=== PATIENT | male | born 1970 | race Caucasian/White ===

== ENCOUNTER 2022-09-28 09:17 | Inpatient (IN) | payer OTHER ==
[2022-09-28 09:46] VITALS: BMI 25.9
[2022-09-28] MEDS ORDERED: hydrOXYzine PAMOATE 25 MG CAPSULE (FP) PO PRN (10:21)
[2022-09-28] MEDS ORDERED: ACETAMINOPHEN 325 MG TABLET (FP) PO PRN ×2 (10:21)
[2022-09-28] MEDS ORDERED: NALOXONE HCL (KLOXXADO) 8 MG SPRAY NS PRN (10:21)
[2022-09-28] MEDS ORDERED: NICOTINE 10 MG CARTRIDGE (INHALER) IH PRN (10:21)
[2022-09-28] MEDS ORDERED: DICYCLOMINE HCL 10 MG CAPSULE PO PRN (10:21)
[2022-09-28] MEDS ORDERED: ONDANSETRON *ODT* 4 MG TABLET SL PRN (10:21)
[2022-09-28] MEDS ORDERED: IBUPROFEN 600 MG TABLET (FP) PO PRN (10:21)
[2022-09-28] MEDS ORDERED: POLYETHYLENE GLYCOL (HEALTHYLAX) 3350 17 GM PACKET PO PRN (10:21)
[2022-09-28] MEDS ORDERED: LOPERAMIDE HCL 2 MG CAPSULE PO PRN (10:21)
[2022-09-28] MEDS ORDERED: BENZOCAINE/MENTHOL (CHLORASEPTIC ) LOZENGE MM PRN (10:21)
[2022-09-28] MEDS ORDERED: MAGNESIUM HYDROX 2400MG/30ML ORAL SUSPENSION 30 ML CUP PO PRN (10:21)
[2022-09-28] MEDS ORDERED: BISMUTH SUBSALICYLATE 524 MG/30 ML PO PRN (10:21)
[2022-09-28] MEDS ORDERED: IBUPROFEN 400 MG TABLET (FP) PO PRN (10:21)
[2022-09-28] MEDS ORDERED: MAG HYDROX/AL HYDROX/SIMETH 30 ML UNIT-DOSE CUP PO PRN (10:21)
[2022-09-28] MEDS: PRENATAL VITAMINS W/ FOLIC ACID TABLET (FP) PO SCH (11:32)
[2022-09-28] MEDS: NICOTINE 14 MG/24 HOURS TOPICAL PATCH TD SCH (11:33)
[2022-09-28] MEDS: METHOCARBAMOL 500 MG TABLET PO PRN (22:39)
[2022-09-28] MEDS: traZODone HCL 50 MG TABLET (FP) PO SCH (22:40)
[2022-09-28] MEDS: MELATONIN 5 MG TABLETS PO SCH (22:41)
[2022-09-28] MEDS: THIAMINE HCL 100 MG TABLET (FP) PO SCH (22:41)
[2022-09-29 09:07] VITALS: RESP 18
[2022-09-29] MEDS ORDERED: ESCITALOPRAM OXALATE 10 MG TABLET PO SCH (10:00)
[2022-09-29] MEDS: PRENATAL VITAMINS W/ FOLIC ACID TABLET (FP) PO SCH (10:20)
[2022-09-29] MEDS: NICOTINE 14 MG/24 HOURS TOPICAL PATCH TD SCH (10:21)
[2022-09-29] MEDS: METHOCARBAMOL 500 MG TABLET PO PRN ×2 (10:23→18:25)
[2022-09-29 12:51] LABS: HEMATOCRIT 41.7 % (35.4-49); MCH 30.7 pg (25.7-33.7); MCHC 33.7 g/dl (32.0-35.9); MEAN CELL VOLUME 91.3 fl (80-96); MEAN PLT VOLUME 8.4 fl (7.5-11.1); PLATELET COUNT 323 10^3/uL (134-434); RBC 4.56 M/mm3 (4.00-5.60); RDW 13.4 % (11.9-15.9); WHITE BLOOD COUNT 9.8 K/mm3 (4.0-10.0)
[2022-09-29 14:07] LABS: ALBUMIN 3.7 g/dl (3.4-5.0); CALCIUM 9.3 mg/dL (8.5-10.1)
[2022-09-29 14:08] LABS: BLOOD UREA NITROGEN 16.4 mg/dL (7-18)
[2022-09-29 14:11] LABS: CREATININE 0.9 mg/dL (0.55-1.3)
[2022-09-29 14:12] LABS: BILIRUBIN,TOTAL 0.4 mg/dL (0.2-1); TOT PROT 6.6 g/dl (6.4-8.2)
[2022-09-29] MEDS: MELATONIN 5 MG TABLETS PO SCH (22:13)
[2022-09-29] MEDS: THIAMINE HCL 100 MG TABLET (FP) PO SCH (22:13)
[2022-09-29] MEDS: traZODone HCL 50 MG TABLET (FP) PO SCH (22:13)
[2022-09-30 09:11] VITALS: BP 145/81; PULSE 95; TEMP 97.3
== END 2022-09-30 09:16 | disposition home or self-care (01) | DRG 775 ==
LOC: YASAS 09:17 → Y3N 10:44
PROVIDERS: ADMIT Allergy & Immunology; ATTEND Surgery
PROC: HZ2ZZZZ Detoxification Services for Substance Abuse Treatment (ICD-10-PCS; principal; 2022-09-28)
DX: F10.230 Alcohol dependence with withdrawal, uncomplicated (principal); F17.210 Nicotine dependence, cigarettes, uncomplicated; F41.9 Anxiety disorder, unspecified; F32.A Depression, unspecified; G47.00 Insomnia, unspecified; Z88.8 Allergy status to other drugs, medicaments and biological substances
CPT/HCPCS: 36415; 80053; 85027; 86780; C9803-CS; U0003; U0005

== ENCOUNTER 2023-02-07 11:30 | Inpatient (IN) | payer OTHER ==
[2023-02-07 11:45] VITALS: BMI 29.0
[2023-02-07] MEDS ORDERED: BENZONATATE 200 MG CAPSULE PO PRN (12:23)
[2023-02-07] MEDS ORDERED: LOPERAMIDE HCL 2 MG CAPSULE PO PRN (12:23)
[2023-02-07] MEDS ORDERED: NALOXONE HCL 0.4 MG/ML VIAL IM PRN (12:23)
[2023-02-07] MEDS ORDERED: MAGNESIUM HYDROX 2400MG/30ML ORAL SUSPENSION 30 ML CUP PO PRN (12:23)
[2023-02-07] MEDS ORDERED: guaiFENesin 600 MG TABLET.ER (FP) PO PRN (12:23)
[2023-02-07] MEDS ORDERED: ONDANSETRON *ODT* 4 MG TABLET SL PRN (12:23)
[2023-02-07] MEDS ORDERED: AMMONIUM LACTATE 12% LOTION 225 GM BOTTLE TP PRN (12:23)
[2023-02-07] MEDS ORDERED: MAG HYDROX/AL HYDROX/SIMETH 30 ML UNIT-DOSE CUP PO PRN (12:23)
[2023-02-07] MEDS ORDERED: hydrOXYzine PAMOATE 25 MG CAPSULE (FP) PO PRN (12:23)
[2023-02-07] MEDS ORDERED: IBUPROFEN 400 MG TABLET (FP) PO PRN (12:23)
[2023-02-07] MEDS ORDERED: NICOTINE POLACRILEX 2 MG GUM BUC PRN (12:23)
[2023-02-07] MEDS ORDERED: DICYCLOMINE HCL 10 MG CAPSULE PO PRN (12:23)
[2023-02-07] MEDS ORDERED: BENZOCAINE/MENTHOL (CHLORASEPTIC ) LOZENGE MM PRN (12:23)
[2023-02-07] MEDS ORDERED: IBUPROFEN 600 MG TABLET (FP) PO PRN (12:23)
[2023-02-07] MEDS ORDERED: NALOXONE HCL (KLOXXADO) 8 MG SPRAY NS PRN (12:23)
[2023-02-07] MEDS ORDERED: POLYETHYLENE GLYCOL (HEALTHYLAX) 3350 17 GM PACKET PO PRN (12:23)
[2023-02-07] MEDS ORDERED: NICOTINE 10 MG CARTRIDGE (INHALER) IH PRN (12:23)
[2023-02-07] MEDS ORDERED: ACETAMINOPHEN 325 MG TABLET (FP) PO PRN (12:23)
[2023-02-07] MEDS ORDERED: COLLOIDAL OATMEAL 1 BAR EACH TP PRN (12:23)
[2023-02-07] MEDS ORDERED: BISMUTH SUBSALICYLATE 262 MG/15 ML BTL PO PRN (12:23)
[2023-02-07 18:36] LABS: POTASSIUM 3.5 mmol/L (3.5-5.1)
[2023-02-07 18:40] LABS: CALCIUM 10.3 mg/dL (8.5-10.1); HEMATOCRIT 44.4 % (35.4-49); HEMOGLOBIN 14.9 GM/dL (11.7-16.9); MCH 30.4 pg (25.7-33.7); MCHC 33.7 g/dl (32.0-35.9); MEAN CELL VOLUME 90.3 fl (80-96); MEAN PLT VOLUME 8.4 fl (7.5-11.1); PLATELET COUNT 368 10^3/uL (134-434); RBC 4.91 M/mm3 (4.00-5.60); RDW 13.4 % (11.9-15.9); WHITE BLOOD COUNT 10.5 K/mm3 (4.0-10.0)
[2023-02-07 18:41] LABS: ALBUMIN 4.1 g/dl (3.4-5.0); BLOOD UREA NITROGEN 13.9 mg/dL (7-18)
[2023-02-07 18:43] LABS: CREATININE 0.9 mg/dL (0.55-1.3)
[2023-02-07 18:45] LABS: BILIRUBIN,TOTAL 0.8 mg/dL (0.2-1)
[2023-02-07 18:46] LABS: TOT PROT 7.6 g/dl (6.4-8.2)
[2023-02-07] MEDS: THIAMINE HCL 100 MG TABLET (FP) PO SCH (22:16)
[2023-02-07] MEDS: traZODone HCL 50 MG TABLET (FP) PO SCH (22:16)
[2023-02-07] MEDS: METHOCARBAMOL 500 MG TABLET PO PRN (22:16)
[2023-02-07] MEDS: MELATONIN 5 MG TABLETS PO SCH (22:16)
[2023-02-08] MEDS: LACTULOSE 20 GM/30 ML UDC (FOR ORAL USE ONLY) PO SCH ×3 (09:58→22:16)
[2023-02-08] MEDS: PRENATAL VITAMINS W/ FOLIC ACID TABLET (FP) PO SCH (09:58)
[2023-02-08] MEDS: ESCITALOPRAM OXALATE 10 MG TABLET PO SCH (09:58)
[2023-02-08] MEDS ORDERED: diazePAM 5 MG TABLET PO PRN (10:03)
[2023-02-08] MEDS: diazePAM 5 MG TABLET PO SCH ×3 (10:33→22:18)
[2023-02-08] MEDS: METHOCARBAMOL 500 MG TABLET PO PRN (22:17)
[2023-02-08] MEDS: MELATONIN 5 MG TABLETS PO SCH (22:17)
[2023-02-08] MEDS: THIAMINE HCL 100 MG TABLET (FP) PO SCH (22:17)
[2023-02-08] MEDS: traZODone HCL 50 MG TABLET (FP) PO SCH (22:18)
[2023-02-08] MEDS: OFLOXACIN 0.3% OTIC SOLUTION 5 ML BOTTLE AU SCH (22:58)
[2023-02-08] MEDS: CARBAMIDE PEROXIDE 6.5% OTIC 15 ML BOTTLE AU SCH (23:05)
[2023-02-09] MEDS: diazePAM 5 MG TABLET PO SCH ×4 (05:56→22:13)
[2023-02-09] MEDS: LACTULOSE 20 GM/30 ML UDC (FOR ORAL USE ONLY) PO SCH ×3 (05:57→22:14)
[2023-02-09] MEDS: ESCITALOPRAM OXALATE 10 MG TABLET PO SCH (10:15)
[2023-02-09] MEDS: PRENATAL VITAMINS W/ FOLIC ACID TABLET (FP) PO SCH (10:15)
[2023-02-09] MEDS: CARBAMIDE PEROXIDE 6.5% OTIC 15 ML BOTTLE AU SCH ×2 (10:16→21:32)
[2023-02-09] MEDS: OFLOXACIN 0.3% OTIC SOLUTION 5 ML BOTTLE AU SCH (10:16)
[2023-02-09] MEDS: THIAMINE HCL 100 MG TABLET (FP) PO SCH (22:13)
[2023-02-09] MEDS: traZODone HCL 50 MG TABLET (FP) PO SCH (22:14)
[2023-02-09] MEDS: MELATONIN 5 MG TABLETS PO SCH (22:14)
[2023-02-10] MEDS: diazePAM 5 MG TABLET PO SCH ×2 (05:27→14:32)
[2023-02-10] MEDS: LACTULOSE 20 GM/30 ML UDC (FOR ORAL USE ONLY) PO SCH (05:28)
[2023-02-10] MEDS: PRENATAL VITAMINS W/ FOLIC ACID TABLET (FP) PO SCH (10:09)
[2023-02-10] MEDS: ESCITALOPRAM OXALATE 10 MG TABLET PO SCH (10:09)
[2023-02-10] MEDS: OFLOXACIN 0.3% OTIC SOLUTION 5 ML BOTTLE AU SCH (10:10)
[2023-02-10] MEDS: CARBAMIDE PEROXIDE 6.5% OTIC 15 ML BOTTLE AU SCH (10:10)
[2023-02-10 11:49] LABS: EOS % 7.7 % (0-4.5); HEMATOCRIT 40.9 % (35.4-49); HEMOGLOBIN 13.8 GM/dL (11.7-16.9); MCH 30.8 pg (25.7-33.7); MCHC 33.6 g/dl (32.0-35.9); MEAN CELL VOLUME 91.7 fl (80-96); MEAN PLT VOLUME 8.6 fl (7.5-11.1); MONO % 10.4 % (3.8-10.2); NEUT % 53.9 % (42.8-82.8); PLATELET COUNT 297 10^3/uL (134-434); RBC 4.46 M/mm3 (4.00-5.60); RDW 13.2 % (11.9-15.9); WHITE BLOOD COUNT 7.2 K/mm3 (4.0-10.0)
[2023-02-10] MEDS ORDERED: METHOCARBAMOL 500 MG TABLET PO PRN (17:29)
[2023-02-10 19:01] VITALS: BP 156/95; PULSE 69; RESP 18; TEMP 97.7
[2023-02-11] MEDS ORDERED: diazePAM 5 MG TABLET PO SCH (06:00)
[2023-02-12] MEDS ORDERED: diazePAM 5 MG TABLET PO ONE (06:00)
== END 2023-02-10 17:46 | disposition left against medical advice (07) | DRG 770 ==
LOC: YASAS 11:30 → Y3N 12:34
PROVIDERS: ADMIT Allergy & Immunology; ATTEND Surgery
PROC: HZ2ZZZZ Detoxification Services for Substance Abuse Treatment (ICD-10-PCS; principal; 2023-02-07)
DX: F10.230 Alcohol dependence with withdrawal, uncomplicated (principal); F15.20 Other stimulant dependence, uncomplicated; F12.20 Cannabis dependence, uncomplicated; F17.210 Nicotine dependence, cigarettes, uncomplicated; F41.9 Anxiety disorder, unspecified; G47.00 Insomnia, unspecified; H61.23 Impacted cerumen, bilateral; H92.03 Otalgia, bilateral; R79.89 Other specified abnormal findings of blood chemistry
CPT/HCPCS: 36415; 80053; 82140; 85025; 85027; 86780; 87635; 87811; C9803-CS; U0003; U0005